=== PATIENT | male | born 1985 | race Caucasian/White ===

== ENCOUNTER → 2020-01-29 | Outpatient (REF) | payer BC | LOC: M SMT 13:19 | PROVIDERS: ATTEND Urology | DX: Z30.2 Encounter for sterilization (principal) ==

== ENCOUNTER → 2020-04-08 | Outpatient (CLI) | payer BC | LOC: M LABSMTC 11:20 | PROVIDERS: ATTEND Anesthesiology | DX: Z01.818 Encounter for other preprocedural examination (principal); Z11.59 Encounter for screening for other viral diseases | CPT/HCPCS: C9803; U0003 ==

== ENCOUNTER 2020-04-11 06:56 | Day surgery (SDC) | payer BC ==
[~2020-04-11] VITALS: Ht 182.9 cm; Wt 86.2 kg
[2020-04-11] MEDS ORDERED: dexameTHASONE 4 MG/ML 1ML VIAL (J1100 PER 1MG) As Ordered ONE (06:58)
[2020-04-11] MEDS ORDERED: ONDANSETRON 4MG/2ML VIAL As Ordered ONE (06:58)
[2020-04-11] MEDS ORDERED: ROCURONIUM BROMIDE 50 MG/5 ML VIAL As Ordered ONE (06:58)
[2020-04-11] MEDS ORDERED: LIDOCAINE 2% 100MG/5ML SDV (FOR ANES.) As Ordered ONE (06:58)
[2020-04-11] MEDS ORDERED: propofoL 200 MG/20 ML VIAL As Ordered ONE ×2 (06:58→09:43)
[2020-04-11] MEDS ORDERED: fentaNYL 100 MCG/2 ML INJECTION (J3010) As Ordered ONE ×2 (07:00→09:09)
[2020-04-11] MEDS ORDERED: MIDAZOLAM INJ 2MG/2ML VIAL (J2250 PER 1MG) As Ordered ONE (07:01)
[2020-04-11] MEDS ORDERED: OXYMETAZOLINE NASAL SPRAY (AFRIN) As Ordered ONE (07:04)
[2020-04-11] MEDS ORDERED: LIDOCAINE W/EPINEPHRINE 1% 20ML VIAL As Ordered ONE (07:04)
[2020-04-11] MEDS ORDERED: METHYLENE BLUE 0.5% (5MG/ML) 10 ML AMP (PROVAYBLUE)(Q9968 PER 1MG) As Ordered ONE (07:04)
[2020-04-11] MEDS ORDERED: LR 1,000 ML IV ONE (08:15)
[2020-04-11] MEDS ORDERED: ACETAMINOPHEN 1000MG 100ML IV BTL (OFIRMEV) (J0131 PER 10MG) As Ordered ONE (09:06)
[2020-04-11] MEDS ORDERED: SUGAMMADEX SODIUM 500 MG/5 ML VIAL (BRIDION) As Ordered ONE (09:12)
[2020-04-11] MEDS ORDERED: SODIUM CHLORIDE 0.9% NASAL GEL 15GM (AYR) As Ordered ONE (09:44)
[2020-04-11] MEDS ORDERED: LR 1,000 ML IV SCH (10:30)
[2020-04-11] MEDS ORDERED: METOCLOPRAMIDE INJ 10MG/2ML VIAL (J2765 PER 1) IV PRN (10:30)
[2020-04-11] MEDS ORDERED: oxyCODONE 5MG TAB PO PRN (10:30)
[2020-04-11] MEDS ORDERED: fentaNYL 100 MCG/2 ML INJECTION (J3010) IV PRN (10:30)
[2020-04-11] MEDS ORDERED: ONDANSETRON 4MG/2ML VIAL IV PRN (10:30)
[2020-04-11] MEDS ORDERED: HYDROMORPHONE HCL 0.5 MG/ 0.5 ML SYRINGE (J1170 PER 1) IV PRN (10:30)
[2020-04-11] MEDS ORDERED: PERCOCET 5MG/325MG TAB PO SCH (14:00)
== END 2020-04-11 12:32 | disposition home or self-care (01) ==
LOC: M SDC 06:56
PROVIDERS: ATTEND Specialist
DX: J34.2 Deviated nasal septum (principal); J31.0 Chronic rhinitis
CPT/HCPCS: 30140; 30520; 88300; J0131; J1100; J2250; J2405; J3010; Q9968

== ENCOUNTER → 2022-01-15 | Outpatient (REF) | payer BC ==
[2022-01-15 12:21] LABS: SEMEN APPEARANCE OPAQUE (OPAQUE); SEMEN VISCOSITY LIQUID (LIQUID); SEMEN VOLUME 2.2 ml (2.0-5.0); SEMEN pH 8.5 (7.0-8.0); WBC CONCENTRATION <=1 M/ml (<=1 M/ml)
== END ==
LOC: M SMT 11:59
PROVIDERS: ATTEND Urology
DX: Z98.52 Vasectomy status (principal)